=== PATIENT | male | born 1970 | race Caucasian/White ===

== ENCOUNTER 2018-08-06 08:30 | Outpatient (RCR) | payer OTHER, BC, SELFPAY | END 2018-08-06 12:00 | disposition home or self-care (01) | LOC: PT.CARL 08:30 | PROVIDERS: Visit Provider Orthopaedic Surgery | DX: M75.101 Unspecified rotator cuff tear or rupture of right shoulder, not specified as traumatic (principal); M25.511 Pain in right shoulder | CPT/HCPCS: 97010; 97014; 97033; 97110; 97140; 97163; 97164; G0283 ==

== ENCOUNTER → 2018-12-28 11:40 | Outpatient (CLI) | payer BC, SELFPAY ==
[2018-12-28 14:17] LABS: INR 1.39 (0.9-1.1); Prothrombin Time 14.2 seconds (9.4-11.8)
== END ==
PROVIDERS: Visit Provider Nurse Practitioner Acute Care
DX: Z51.81 Encounter for therapeutic drug level monitoring (principal); Z79.01 Long term (current) use of anticoagulants
CPT/HCPCS: 85610